=== PATIENT | female | born 1970 | race Caucasian/White ===

== ENCOUNTER 2018-04-13 06:33 | Day surgery (SDC) | payer OTHER, SELFPAY ==
[2018-04-07 10:04] VITALS: BMI 25.4
[2018-04-13] VITALS (13 sets, daily range): BP systolic 102–157; BP diastolic 61–105; PULSE 54–81; RESP 11–19; TEMP 36.2–36.8; O2SAT 94–100; BMI 25.1
--- NOTE | 2018-04-13 | PATH_ITS ---
[facility] Accession Number: [id number] . 01 Material submitted: . UTERUS, BILATERAL FALLOPIAN TUBES . 02 Diagnosis: Uterus, Bilateral Fallopian Tubes, Hysterectomy, Bilateral Salpingectomy: Leiomyomas, negative for atypia. Weak proliferative endometrium with no evidence of neoplasia or hyperplasia. Bilateral fallopian tubes with no evidence of neoplasia. 04/16/2018 . 02 Electronically signed: . Lissy Marquez MD, Pathologist NPI- [id number] . 01 Gross description: . Received in formalin, labeled uterus, Jonel tubes, is a morcellated uterus (209 g, 14.3 x 13.7 x 5.5 cm in aggregate) and two detached fimbriated fallopian tubes (tube #1: length - 4.6 cm, diameter - 0.3 cm; tube #2: length - 5.7 cm, diameter - 0.4 cm). The ovaries and cervix are absent. The specimen cannot be oriented, and the endometrium and myometrium cannot be grossly measured. The parenchyma is kennedy-white and contains multiple solid, firm, white, whorled, well-circumscribed, homogenous nodules (0.2 x 0.1 x 0.1 cm - 2.5 x 2.3 x 1.3 cm). The serosa is pale kennedy, smooth, and shiny. The fallopian tubes have meredith-purple, smooth, shiny serosa and kennedy unremarkable lumens. Section code: (A1-A4) pare, exhibit display representative; (A5) fallopian tube #1, serially sectioned, exhibit display representative; (A6) fimbriated #1, bivalved, entirely submitted; (A7) fallopian tube #2, serially sectioned, exhibit display representative; (A8) fimbria #2, bivalved, entirely submitted. Additional sections: (A9-A12) additional tissue. Additional exhibit display representative sections are submitted in cassettes A9-A12. ([id number]) ([id number]) /FRR . 02 Pathologist provided ICD-10: D25.9 . 02 CPT . 888856 Performed at: 01 [facility] [address] [place] [address], [place], [place] [id number] MD King Monzon MD Phone: [phone] Performed at: [address] [facility] [id number] [place], [place] [id number] MD John Hernandez MD Phone: [phone]
[2018-04-13] MEDS: LACTATED RINGERS 1,000 ML 42 ML IV ×2 (07:11→13:52)
--- NOTE | 2018-04-13 08:07 | PM.PREOP ---
Pre-operative Note Interval Note Pre-op Check: History & Physical Reviewed by Physician
--- NOTE | 2018-04-13 08:07 | PM.HP.1 ---
History of Present Illness Date Patient Seen: 04/06/18 Time Patient Seen: 08:08 Chief complaint: *OPB* [facility] w/rafael salpingectomy [id number] Narrative: Patient is a 48-year-old 2 para 1 who is scheduled for a laparoscopic supracervical hysterectomy with bilateral salpingectomy secondary to enlarged fibroid uterus, severe dysmenorrhea, and menorrhagia. Patient History Medical History Pneumonia (Acute) Uterine fibroid (Acute) Family & Social History Social History: household members spouse Tobacco & Substance use: Smoking Status Never smoker alcohol intake current alcohol intake frequency a few times a month Substance Use Type does not use Meds Home Medications Medication Instructions Recorded Confirmed Type No Known Home Medications 02/24/18 04/13/18 History Allergies Allergy/AdvReac Type Severity Reaction Status Date / Time No Known Drug Allergies Allergy Unverified 02/24/18 08:21 Exam Vital Signs (past 8 hours): Vital Signs - 8 hr 04/13/18 07:11 Temperature 97.2 F L Pulse Rate 76 Respiratory Rate 16 Blood Pressure 157/105 H Pulse Oximetry 100 Pulse Oximetry 100 Oxygen Delivery Method Room Air Narrative Exam Narrative: HEENT: No thyromegaly, no anterior cervical or supraclavicular lymphadenopathy. Lungs:Clear to auscultation bilaterally, no wheezes. Cardiovascular: Regular rate and rhythm, no murmurs, rubs, or gallops. Abdomen: No scars. No hepatosplenomegaly. No masses palpable. External genitalia: Normal Vagina: Normal Cervix: Normal Bimanual exam: 10 Week size uterus. Mobile.] Rectal: No masses. Objective Labs Labs: Ultrasound: Enlarged fibroid uterus Assessment & Plan (1) Fibroid uterus: Current visit: Yes Status: Acute (2) Secondary dysmenorrhea: Current visit: Yes Status: Acute (3) Menorrhagia with regular cycle: Current visit: Yes Status: Acute Plan: Assessment/Plan Narrative: Assessment: 48-year-old 2 para 1 with an enlarged fibroid uterus, severe dysmenorrhea, and menorrhagia Plan: Laparoscopic supracervical hysterectomy with bilateral salpingectomy The risks, benefits, and alternatives to the procedure were explained to the patient. The risks including bleeding, infection, injury to the bowel, bladder, or ureters. She also understands that there is a risk of an open procedure. She understands these risks and agrees to proceed. A full capital P AR-Q was held and consent form was signed.
[2018-04-13] MEDS: CEFAZOLIN 2 GM/100 ML FROZ.PIGGY IV (08:10)
--- NOTE | 2018-04-13 08:12 | P.HP_ITS ---
History of Present Illness Date Patient Seen: 04/06/18 Time Patient Seen: 08:08 Chief complaint: *OPB* [facility] w/rafael salpingectomy [id number] Narrative: Patient is a 48-year-old 2 para 1 who is scheduled for a laparoscopic supracervical hysterectomy with bilateral salpingectomy secondary to enlarged fibroid uterus, severe dysmenorrhea, and menorrhagia. Patient History Medical History Pneumonia (Acute) Uterine fibroid (Acute) Family & Social History Social History: household members spouse Tobacco & Substance use: Smoking Status Never smoker alcohol intake current alcohol intake frequency a few times a month Substance Use Type does not use Meds Home Medications Medication Instructions Recorded Confirmed Type No Known Home Medications 02/24/18 04/13/18 History Allergies Allergy/AdvReac Type Severity Reaction Status Date / Time No Known Drug Allergies Allergy Unverified 02/24/18 08:21 Exam Vital Signs (past 8 hours): Vital Signs - 8 hr 3 04/13/18 07:11 Temperature 97.2 F L Pulse Rate 76 Respiratory Rate 16 Blood Pressure 157/105 H Pulse Oximetry 100 Pulse Oximetry 100 Oxygen Delivery Method Room Air Narrative Exam Narrative: HEENT: No thyromegaly, no anterior cervical or supraclavicular lymphadenopathy. Lungs:Clear to auscultation bilaterally, no wheezes. Cardiovascular: Regular rate and rhythm, no murmurs, rubs, or gallops. Abdomen: No scars. No hepatosplenomegaly. No masses palpable. External genitalia: Normal Vagina: Normal Cervix: Normal Bimanual exam: 10 Week size uterus. Mobile.] Rectal: No masses. Objective Labs Labs: Ultrasound: Enlarged fibroid uterus Assessment & Plan (1) Fibroid uterus: Current visit: Yes Status: Acute (2) Secondary dysmenorrhea: Current visit: Yes Status: Acute (3) Menorrhagia with regular cycle: Current visit: Yes Status: Acute Plan: Assessment/Plan Narrative: Assessment: 48-year-old 2 para 1 with an enlarged fibroid uterus, severe dysmenorrhea, and menorrhagia Plan: Laparoscopic supracervical hysterectomy with bilateral salpingectomy The risks, benefits, and alternatives to the procedure were explained to the patient. The risks including bleeding, infection, injury to the bowel, bladder , or ureters. She also understands that there is a risk of an open procedure. She understands these risks and agrees to proceed. A full capital P AR-Q was held and consent form was signed.
[2018-04-13] MEDS: MIDAZOLAM 5 MG/ML VIAL 2 MG IV (08:13)
--- NOTE | 2018-04-13 09:02 | SUR.OPER ---
Lithotomy on padded OR bed. [place]irt[place] Pad Positioner under torso. Head on pillow, arms padded and tucked at sides. Legs secured in padded yellow fins stirrups.
[2018-04-13] MEDS: BUPIVACAINE 0.5% W/ EPI (PF) 30 ML VIAL INJ (09:13)
[2018-04-13] MEDS: ROPIVACAINE 0.2% PF 2 MG/ML 10ML AMP 20 ML INJ (09:14)
[2018-04-13] MEDS: HYDROMORPHONE 2 MG INJ 0.5 MG IV ×2 (10:36→10:43)
[2018-04-13] MEDS: OXYCODONE IR 5 MG TABLET PO (10:41)
[2018-04-13] MEDS: LACTATED RINGERS 1,000 ML 100 ML IV (10:50)
--- NOTE | 2018-04-13 11:05 | SUR.PHASEII ---
PT ARRIVED TO PHASE II VIA BED FROM PACU. PT SITTING UP, DRINKING COFFEE AND ALERT. IV SITE CLEAR AND INFUSING WITHOUT ANY DIFFICULTLY. DRSG X3 TO ABDOMEN OBSERVED TO BE C/D/I. GABRIEL-PAD VAGINALLY OBSERVED TO BE C/D/I. PT DENIES ANY NAUSEA AT THIS TIME. PT RATES PAIN 4/10 AT THIS TIME BUT STATES IT IS TOLERABLE AND DOESN'T WANT ANY MORE PAIN MEDS AT THIS TIME. PT APPEARS COMFORTABLE. BED IN LOWEST POSITION AND CALL LIGHT GIVEN TO PT. PT INSTRUCTED SHE NEEDS TO VOID PRIOR TO BEING DC TO HOME. PT VOICED UNDERSTANDING. PT AWAITING RETURN OF HER SPOUSE AT THIS TIME.
--- NOTE | 2018-04-13 13:02 | SUR.PHASEII ---
PT AMBULATED TO THE BATHROOM WITH SBA TO ATTEMPT TO VOID AT 1230. PT TOLERATED AMBULATING WELL. PT UNSUCCESSFUL WITH VOIDING. AFTER RETURNING FROM BATHROOM, PT HAD ONE EPOSIDE OF EMESIS, APPROX 800ML. PT STATED AFTER EMESIS, NO FURTHER NAUSEA AT THIS TIME. PT RESTING IN BED AT THIS TIME WITH AT BEDSIDE. DRSG X3 ON ABDOMEN OBSERVED TO BE C/D/I. PT SIPPING WATER AT THIS TIME. PT STATES PAIN IS AT TOLERABLE LEVEL. BED IN LOWEST POSITION AND CALL LIGHT WITHIN REACH OF PT. PT APPEARS COMFORTABLE AT THIS TIME.
--- NOTE | 2018-04-13 13:16 | SUR.PHASEII ---
Water provided, pt denied other needs. IV not infusing, blood in tubing, IV flushed with saline, pt denied pain, LR infusing without difficulty.
--- NOTE | 2018-04-13 13:52 | SUR.PHASEII ---
PT ATTEMPTED TO VOID AGAIN. PT UNSUCCESSFUL AT THIS TIME. BLADDER SCAN DONE AND SHOWED 87 ML OF URINE. PT DRINKING JUICE AND IV INFUSING AT THIS TIME. PT DENIES ANY PAIN OR NAUSEA. DRSGX4 TO ABDOMEN C/D/I. BED IN LOWEST POSITION AND CALL LIGHT GIVEN TO PT. PT APPEARS COMFORTABLE AT THIS TIME.
--- NOTE | 2018-04-13 15:10 | SUR.PHASEII ---
PT UP TO VOID AT 1440. PT VOIDED APPROX 20ML. AFTER VOIDING, POST VOID BLADDER SCAN DONE. BLADDER SCAN SHOWED 84 ML OF URINE LEFT. CALLED AND SPOKE WITH DR. NIEVES NURSEKENAN WHO STATED DR. NIEVES WAS OK WITH PT BEING DISCHARGED HOME. IV DC'D AND INTACT. PT TOLERATED WELL. PT DRESSED SELF WITHOUT ANY DIFFICULTLIES. REVIEWED DC INSTRUCTIONS WITH PT AND PT , NO FURTHER QUESTIONS OR CONCERNS VOICED. PT DC TO HOME VIA WC AT 1505 IN STABLE CONDITION.
--- NOTE | 2018-04-14 12:27 | P.OP_ITS ---
Operative Date/Time/Diagnoses - Date of procedure: 04/13/18 Time of procedure: 10:00 Pre-op diagnosis: Menorrhagia Enlarged fibroid uterus Severe dysmenorrhea Post-op diagnosis: same Procedure: Procedures Operation Date: 04/13/18 07:45 Actual Procedures Side Surgeon p Laparoscopic Supracervical Hysterectomy w/Bilat Salpingectomy Shannon Sutherland MD Indications: Enlarged fibroid uterus Severe dysmenorrhea Menorrhagia Surgeon: Shannon Sutherland Playground Equipment Erector: Mg Fofana Anesthesia Type: General Operative Notes Findings: 11 week size multi fibroid uterus Normal tubes and ovaries Normal liver and gallbladder Normal appendix Closure Type: primary Specimen(s): left tube, right tube and uterus Applied: catheter (Out at the end of the case) Estimated blood loss (mL): 40 Blood products transfused: none Procedure in detail: The patient was taken to the operating room where she was placed in the dorsal supine position. After adequate general endotracheal anesthesia was achieved, she was placed in the dorsal lithotomy position, and prepped and draped in the usual sterile fashion. A timeout was performed. A bivalve speculum was placed into the vagina and the anterior lip of the cervix grasped with a single-tooth tenaculum. The cervical os was sequentially dilated until the ZUMI uterine manipulator could pass easily into the endometrial cavity. The single-tooth tenaculum was removed from the anterior lip of the cervix, and the bivalve speculum was removed from the vagina. Attention was then turned to the abdomen where 6 mL of half percent Marcaine with epinephrine were injected in the umbilical fold. A 5 mm incision was made. The Verhees needle was placed into the peritoneal cavity, and its placement confirmed by aspiration and drop test. The Verhees needle was removed. A 5 mm trocar was placed without difficulty. 2 other incisions were made midway between the pubic symphysis and umbilicus after 5 mL of half percent Marcaine with epinephrine were injected. These were 5 mm incisions. Two 5 mm trochars were placed under direct visualization. The right tube was grasped with an atraumatic grasper. Using the plasma kinetic with settings of 40 W the mesosalpinx was cauterized and cut all the way down to the cornua of the uterus. The cornua of the uterus was then grasped with an atraumatic grasper. The utero-ovarian ligaments were cauterized and cut. The round ligament and broad ligament was cauterized and cut with plasma kinetic. Hemostasis was achieved. The bladder flap was created using the plasma kinetic with cautery and cut snf across. The uterine arteries on the right side were extensively cauterized with plasma kinetic. All of this was repeated on the left side. The remainder of the bladder flap was created using the plasma kinetic, and the bladder taken down off the lower uterine segment and cervix. Using the Endoloop, the cervix was amputated from the uterus 2 cm above the uterosacral ligaments, after the ZUMI uterine manipulator was removed from the uterus. There was a small amount of bleeding noted from the posterior edge of the cervix, and this was cauterized for hemostasis. A sponge stick was placed into the vagina. 6 mL of half percent Marcaine with epinephrine were injected above the pubic symphysis. A 12 mm trocar was placed. An Endobag was placed through the suprapubic trocar and the uterus placed into the Endobag. The trocar was removed. The Will placed into the endobag. The uterus was hand morcellated in approximately 20 pieces. The Endobag was removed from the peritoneal cavity. The pelvis was copiously irrigated with warm normal saline. No bleeding was noted. The instruments were removed from the abdomen. The CO2 was allowed to escape. The suprapubic incision was closed on the fascia with 0 Vicryl. All of the incisions were closed with 4-0 undyed Vicryl in a subcuticular fashion. The moistened sponge stick was removed from the vagina. Sponge, lap, and instrument counts were correct x-2. The patient tolerated the procedure well, was taken to PACU in stable condition. Complications: none Post-operative Condition: stable Disposition: PACU Plan for aftercare: Home after recovery
== END 2018-04-13 14:50 | disposition home or self-care (01) ==
PROVIDERS: Family Provider Obstetrics & Gynecology; PCP Obstetrics & Gynecology; Visit Provider Obstetrics & Gynecology
PROC: 0UT94ZL Resection of Uterus, Supracervical, Percutaneous Endoscopic Approach (ICD-10-PCS; CPT 58542; principal; 2018-04-13 07:45)
DX: D25.9 Leiomyoma of uterus, unspecified (principal); N92.0 Excessive and frequent menstruation with regular cycle
CPT/HCPCS: 58542; J0131; J0690; J1100; J1170; J1885; J2250; J2405; J2795

== ENCOUNTER 2018-09-21 06:19 | Day surgery (SDC) | payer OTHER, SELFPAY ==
[2018-09-11 09:34] VITALS: BMI 25.5
[2018-09-20 13:56] VITALS: BMI 25.5
[2018-09-21] VITALS (15 sets, daily range): BP systolic 99–147; BP diastolic 59–93; PULSE 56–88; RESP 11–18; TEMP 36.4–36.9; O2SAT 92–100; BMI 25.5
--- NOTE | 2018-09-21 | PATH_ITS ---
[facility] Accession Number: [id number] . 01 Material submitted: . CERVIX . 02 Diagnosis: Cervix, Prolapse Repair: Squamous mucosa with parakeratosis and reactive changes; negative for squamous dysplasia and malignancy. Mildly inflamed endocervix with very focal microglandular hyperplasia; negative for glandular dysplasia and malignancy. MRV/09/24/2018 . 02 Electronically signed: . Antoinette Higginbotham MD, Pathologist NPI- [id number] . 01 Gross description: . Received in formalin, labeled cervix, is an unoriented cervix (22 grams, diameter-3.8 x 3.8 cm, superficial to deep-2.5 cm) with a transverse os and patent endocervical canal. No nodules, masses or lesions are identified. Section code: (A1) cervix; (A2) cervix, opposite side). ([id number]) /MRV . 02 Pathologist provided ICD-10: N81.4 . 02 CPT . 680379 Performed at: 01 [facility] [address] [place] [id number] MD King Monzon MD Phone: [phone] Performed at: 02 [facility] [address] [place], [place] [id number] MD Lissy Marquez MD Phone: [phone]
[2018-09-21] MEDS: LACTATED RINGERS 1,000 ML 42 ML IV ×2 (07:24→10:08)
[2018-09-21] MEDS: LACTATED RINGERS 1,000 ML 100 ML IV ×3 (07:27→16:41)
[2018-09-21] MEDS: MIDAZOLAM 2 MG/2 ML VIAL IV ×2 (07:45→07:47)
[2018-09-21] MEDS: CEFAZOLIN 2 GM/100 ML FROZ.PIGGY IV (07:45)
--- NOTE | 2018-09-21 07:47 | PM.PREOP ---
Pre-operative Note Interval Note Pre-op Check: Yes History & Physical Reviewed by Physician Changes: No
--- NOTE | 2018-09-21 08:18 | SUR.OPER ---
Lithotomy on padded OR bed, head on pillow, arms secured on padded arm boards at <90 degrees abduction. Legs secured in padded yellow fins stirrups.
[2018-09-21] MEDS: BUPIVACAINE 0.25% W/ EPI VIAL 30 ML INJ (08:26)
[2018-09-21] MEDS: fentaNYL 100 MCG/2 ML INJ 50 MCG IV (09:47)
--- NOTE | 2018-09-21 11:12 | PC.NURSE ---
Patient arrived 10:15 from PACU, oriented to room and call light. Report mild pain, but declines intervention, would like to try and nap. Smith in place draining small amount of clear yellow urine at this time. Tabatha pad checked and in place without drainage (per [employer] SALES REPRESENTATIVES pad was just changed and was previously having a moderate amount- will follow). Call light placed within reach of patient, she was able to contact her to tell him she;s out of surgery. Will continue to monitor and provide care.
[2018-09-21] MEDS: KETOROLAC 30 MG/ML VIAL IV ×2 (12:26→18:11)
[2018-09-21] MEDS: OXYCODONE/ACETAMINOPHEN 5/325 TABLET 1 TAB PO ×2 (18:10→23:46)
[2018-09-21] MEDS: DOCUSATE 250 MG CAPSULE PO (23:46)
[2018-09-22] MEDS: KETOROLAC 30 MG/ML VIAL IV ×2 (00:43→09:11)
[2018-09-22 06:23] LABS: Add Manual Diff / Slide Review NO; Basophils Percent Auto 0.2 % (0-2); Eosinophils Percent Auto 0.3 % (2-4); Hematocrit 36.9 % (36-46); Hemoglobin 12.1 g/dL (12.0-16.0); Lymphocytes Percent Auto 21.6 % (25-40); Mean Corpuscular HGB Conc 32.7 % (30-36); Mean Corpuscular Hemoglobin 27.7 PG (26-34); Mean Corpuscular Volume 84.9 fL (80-100); Monocytes Percent Auto 8.5 % (3-14); Neutrophils Absolute Auto 6000 /uL (3000-5900); Neutrophils Percent Auto 69.4 % (50-75); Platelet Count 233 X10^3/uL (150-400); Red Blood Cell Count 4.35 X10^6/uL (4.0-5.2); Red Cell Distribution Width 13.3 % (11.6-14.8); White Blood Cell Count 8.7 X10^3/uL (4.5-11.0)
[2018-09-22 07:15] VITALS: BP 124/87; PULSE 64; RESP 16; TEMP 37; O2SAT 98
[2018-09-22 07:25] VITALS: BP 125/89; PULSE 63; RESP 17; TEMP 36.6; O2SAT 99
--- NOTE | 2018-09-22 08:08 | PM.GYNOP.1 ---
Operative Date/Time/Diagnoses Date of procedure: 09/21/18 Time of procedure: 11:45 Pre-op diagnosis: Cystocele and rectocele Cervical prolapse Post-op diagnosis: same Procedure: Procedures Operation Date: 09/21/18 07:45 Actual Procedures Side Surgeon p Vaginal Trachelectomy Shannon Sutherland MD s Cystocele and rectocele repair Shannon Sutherland MD Indications: Cervical prolapse Cystocele and rectocele Surgeon: Shannon Sutherland Civil Engineering Draftsperson: Mg Fofana Anesthesia Type: General Operative Notes Findings: 3rd degree cervical prolapse Third-degree cystocele Third-degree rectocele Closure Type: primary Specimen(s): other (Cervix) Applied: catheter Estimated blood loss (mL): 50 Blood products transfused: none Procedure in detail: The patient was taken to the operating room where she was placed in the dorsal supine position. After adequate general endotracheal anesthesia was achieved, she was placed in the dorsal lithotomy position, and prepped and draped in the usual sterile fashion. A time-out was performed. A weighted speculum was placed into the vagina. The cervix was grasped with a single-tooth tenaculum. 10 cc of 0.25% Marcaine with epinephrine were injected circumferentially around the cervix. The cervix was circumscribed. The rectum and bladder were taken off of the cervix with an open moistened Ray-Marquita. The peritoneum was identified and entered sharply with the Metzenbaum scissors anteriorly and posteriorly. A weighted speculum was placed into the posterior cul-de-sac. A Roshan was placed into the anterior cul-de-sac. The uterosacral cardinal ligament complex was clamped, transected, and suture ligated with 0 Vicryl and these were tagged with hemostats. The cervix was handed off for specimen. The peritoneum was closed with a pursestring suture of 2 0 Vicryl. 2 Allis clamps were placed at the apex of the cystocele. 6 mL of half percent Marcaine with epinephrine were injected and an incision was made with a #10 blade between the 2 Allis clamps. Wide Allis clamps were placed on the midline of the cystocele approximately 4. The mucosa was undermined using the Metzenbaum scissors and the mucosa incised in the midline moving the wide Allis clamps to the edges of the mucosa. The mucosa was dissected off the underlying fascia using an open moistened Ray-Marquita and a #10 blade. The fascia was reapproximated with 0 Vicryl with a series of horizontal mattress sutures. The excess vaginal mucosa was excised. The mucosa was closed using simple interrupted sutures with 2-0 Vicryl including the underlying fascia to close the space. The weighted speculum was removed from the vagina. Allis clamps were placed at the mucocutaneous junction at the introitus. 6 mL of half percent Marcaine with epinephrine were injected. An incision was made with a #10 blade between the 2 Allis clamps, and a triangular piece of skin and underlying subcutaneous tissue was removed. Allis clamps were placed in the midline of the rectocele. 10 mL of half percent Marcaine with epinephrine were injected submucosally. The mucosa was undermined using the Metzenbaum scissors and the mucosa incised in the midline, moving the wide Allis clamps to the mucosal edges. The underlying fascia was dissected off of th mucosa using an open moistened Ray-Marquita and a #10 blade. The fascia was reapproximated using 0 Vicryl with a series of horizontal mattress sutures. The excess vaginal mucosa was excised. The mucosa was closed using a series of simple interrupted sutures with 2-0 Vicryl including the underlying fascia to close the space. On the perineum 0 Vicryl was used to reapproximate the levator muscle. The subcutaneous layer was closed with 2-0 Vicryl. The skin was closed with 3-0 chromic in a subcuticular fashion. Hemostasis was achieved. A Betadine moistened vaginal pack was placed into the vagina. A rectal exam was done and there were no sutures palpable in the rectum. The urine was clear. Sponge, lap, and instrument counts were correct x-2. The patient tolerated the procedure well, was taken to PACU in stable condition.m Complications: none Post-operative Condition: stable Disposition: PACU Plan for aftercare: To acute care after recovery
[2018-09-22] MEDS: DOCUSATE 250 MG CAPSULE PO (09:09)
--- NOTE | 2018-09-22 12:02 | PC.NURSE ---
Day shift: Pt left unit w/ this RN at approx 1145. Paperwork signed and questions answered. Pt has all personal belongings. No MD scrips to give. Talked about Ibuprofin for pain control. Pt's spouse is driving her home.
== END 2018-09-22 12:03 | disposition home or self-care (01) ==
LOC: OR 06:23 → AC 06:27
PROVIDERS: Family Provider Obstetrics & Gynecology; PCP Obstetrics & Gynecology; Visit Provider Obstetrics & Gynecology
PROC: (CPT 57530; principal; 2018-09-21 07:45)
PROC: (CPT 57260; 2018-09-21 07:45)
DX: N81.3 Complete uterovaginal prolapse (principal); N81.85 Cervical stump prolapse
CPT/HCPCS: 57260; 36415; 57530; 85025; J0690; J1100; J1885; J2250; J2405; J2704; J3010